=== PATIENT | male | born 1990 | race Caucasian/White ===

== ENCOUNTER 2020-12-14 04:16 | Emergency (ER) | payer OTHER ==
[~2020-12-14] VITALS: Ht 170.2 cm; Wt 74.8 kg
[~2020-12-14 04:16] MED LIST: BICT1TAB PO
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
[2020-12-14] MEDS ORDERED: TDAP [DIPH/PERTUSSIS/TET] 0.5 ML VIAL IM ONE (04:42)
[2020-12-14] MEDS: TDAP [DIPH/PERTUSSIS/TET] 0.5 ML VIAL IM ONE (04:48)
[2020-12-14] MEDS ORDERED: MORPHINE SULFATE INJ 4 MG/ML DISP.SYRIN ONE ×2 (04:49→04:54)
[2020-12-14] MEDS ORDERED: ONDANSETRON 4 MG TAB.RAPDIS ONE (04:49)
--- NOTE | 2020-12-14 04:59 | NUR ---
MEDICATION MORPHINE 4MG FELL ON FLOOR PRIOR TO ADMINISTRATING. MEDICATION WASTED WITH JONG STEVEN RN.
[2020-12-14] MEDS: MORPHINE SULFATE INJ 2 MG/ML DISP.SYRIN IM ONE (05:14)
[2020-12-14] MEDS: ONDANSETRON 4 MG TAB.RAPDIS SL ONE (05:15)
--- NOTE | 2020-12-14 05:55 | NUR ---
CALLED [facility] REGARDING SCANS.
[2020-12-14] MEDS ORDERED: HYDR-3972 PO (06:22)
[2020-12-14 06:53] VITALS: BP 132/80
--- NOTE | 2020-12-14 06:53 | NUR ---
Patient discharged to home in stable condition. Written and verbal after care instructions given. Patient verbalizes understanding of instruction.
== END 2020-12-14 06:54 | disposition home or self-care (01) ==
LOC: ER 04:19
DX: S83.8X2A Sprain of other specified parts of left knee, initial encounter (principal); S00.03XA Contusion of scalp, initial encounter; S50.11XA Contusion of right forearm, initial encounter; S09.8XXA Other specified injuries of head, initial encounter; F17.200 Nicotine dependence, unspecified, uncomplicated; Z88.0 Allergy status to penicillin; Y00.XXXA Assault by blunt object, initial encounter; Y93.01 Activity, walking, marching and hiking; Y92.89 Other specified places as the place of occurrence of the external cause; Y99.8 Other external cause status
CPT/HCPCS: 29125; 70450; 73080; 73090; 73130; 73564; 90471; 90715; 96372; 99284; J2270 ×2; Q0162

== ENCOUNTER 2021-07-28 16:34 | Emergency (ER) | payer OTHER ==
[~2021-07-28] VITALS: Ht 170.2 cm; Wt 81.6 kg
[~2021-07-28 16:34] MED LIST changes: +HYDR-3972 PO
[2021-07-28] MEDS ORDERED: HYDROMORPHONE 1 MG/1 ML DISP.SYRIN ONE ×3 (16:56→22:25)
[2021-07-28] MEDS ORDERED: ONDANSETRON HCL/PF 4 MG/2 ML VIAL ONE (16:56)
[2021-07-28] MEDS ORDERED: ONDANSETRON HCL/PF 4 MG/2 ML VIAL IVP ONE (17:00)
[2021-07-28] MEDS ORDERED: HYDROMORPHONE INJ 2 MG/ML DISP.SYRIN IV ONE (17:00)
[2021-07-28 17:07] LABS: BASOPHILS % (AUTO) 0.4 % (0.0-2.0); EOSINOPHILS % (AUTO) 2.8 % (0.0-6.0); HEMATOCRIT 40 % (39-51); HEMOGLOBIN 13.4 g/dL (13.5-17.5); LYMPHOCYTES % (AUTO) 24.2 % (20.0-44.0); MEAN CORPUSCULAR HGB CONC 34 g/dl (31.0-36.0); MEAN CORPUSCULAR VOLUME 85 fL (80-96); MONOCYTES # (AUTO) 0.7 K/uL (0.1-1.30); MONOCYTES % (AUTO) 8.4 % (2.0-12.0); NEUTROPHILS # (AUTO) 5.4 K/uL (1.8-8.9); NEUTROPHILS % (AUTO) 64.2 % (43.0-81.0); PLATELET COUNT (AUTO) 102 K/uL (150-450); RED BLOOD CELL COUNT(AUTO) 4.71 MIL/uL (4.5-6.0); WHITE BLOOD COUNT (AUTO) 8.4 K/uL (4.3-11.0)
[2021-07-28 17:23] LABS: ALBUMIN 3.4 g/dL (3.4-5.0); BILIRUBIN,DIRECT 0.1 mg/dL (0.0-0.2); BILIRUBIN,TOTAL 0.2 mg/dL (0.2-1.0); CALCIUM, SERUM 8.7 mg/dL (8.5-10.1); POTASSIUM 4.2 mmol/L (3.5-5.1); TOTAL PROTEIN, SERUM 9.1 g/dL (6.4-8.2)
[2021-07-28] MEDS ORDERED: HYDROMORPHONE 1 MG/1 ML DISP.SYRIN IV ONE ×2 (18:30→22:30)
[2021-07-28] MEDS ORDERED: TDAP [DIPH/PERTUSSIS/TET] 0.5 ML VIAL IM ONE ×2 (19:30→20:55)
[2021-07-29 00:20] VITALS: BP 143/82
== END 2021-07-29 | disposition short-term general hospital (02) ==
LOC: ER 16:38
DX: S72.141A Displaced intertrochanteric fracture of right femur, initial encounter for closed fracture (principal); V19.88XA Pedal cyclist (driver) (passenger) injured in other specified transport accidents, initial encounter; Y92.414 Local residential or business street as the place of occurrence of the external cause; S70.311A Abrasion, right thigh, initial encounter; Z20.822 Contact with and (suspected) exposure to COVID-19
CPT/HCPCS: 36415; 71045; 73502; 73552; 80048; 80076; 85025; 87426; 90471; 90715; 96374; 96375; 96376; 99285; C9803; J1170 ×3; J2405